=== PATIENT | female | born 1950 | race Two or more races ===

== ENCOUNTER 2017-07-15 23:07 | Emergency (ER) | payer MEDICARE ==
[~2017-07-15] VITALS: Ht 157.5 cm; Wt 78.3 kg
[2017-07-16] MEDS ORDERED: ASPIRIN 81 MG TABLET CHEW PO ONE
[2017-07-16 00:09] LABS: BASOPHILS # (AUTO) 0.01 x10^3/uL (0-0.1); BASOPHILS % (AUTO) 0 % (0-1); EOSINOPHILS # (AUTO) 0.09 x10^3/uL (0-0.4); EOSINOPHILS % (AUTO) 1 % (1-7); LYMPHOCYTES # (AUTO) 2.44 x10^3/uL (1-3.4); LYMPHOCYTES % (AUTO) 32 % (22-44); MD NO; MEAN CORPUSCULAR HEMOGLOBIN 31.7 pg (27.0-34.8); MEAN CORPUSCULAR HGB CONC 33.5 g/dL (32.4-35.8); MEAN CORPUSCULAR VOLUME 94.7 fL (80-100); MEAN PLATELET VOLUME 7.7 fL (7.4-10.4); MONOCYTES # (AUTO) 0.57 x10^3/uL (0.2-0.8); MONOCYTES % (AUTO) 8 % (2-9); NEUTROPHILS # (AUTO) 4.44 x10^3/uL (1.8-6.8); NEUTROPHILS % (AUTO) 59 % (42-75); PLATELET COUNT 287 x10^3/uL (130-400); RED BLOOD COUNT 3.93 x10^6/uL (3.82-5.3); RED CELL DISTRIBUTION WIDTH 14.1 % (9.6-15.2)
[2017-07-16] MEDS ORDERED: ASPIRIN 81 MG TABLET CHEW ONE (00:10)
[2017-07-16 00:22] LABS: ALANINE AMINOTRANSFERASE 22 U/L (12-78); ALBUMIN 3.1 g/dL (3.4-5.0); ANION GAP 8 mmol/L (5-15); CALCIUM 8.3 mg/dL (8.5-10.1); CHLORIDE 107 mmol/L (98-107); CREATININE 0.99 mg/dL (0.55-1.02)
[2017-07-16 00:26] LABS: ALKALINE PHOSPHATASE 87 U/L (45-117); BILIRUBIN,TOTAL 0.3 mg/dL (0.2-1.0); TOTAL PROTEIN 6.2 g/dL (6.4-8.2); TROPONIN I < 0.015 ng/mL (0.000-0.045)
[2017-07-16 01:23] VITALS: BP 150/70
== END 2017-07-16 01:25 | disposition home or self-care (01) ==
LOC: ED 23:59
DX: M54.12 Radiculopathy, cervical region (principal); R07.89 Other chest pain; E78.00 Pure hypercholesterolemia, unspecified; I10 Essential (primary) hypertension; Z86.711 Personal history of pulmonary embolism; Z90.710 Acquired absence of both cervix and uterus
CPT/HCPCS: 36415; 71045; 80053; 84484; 85025; 93005; 99285

== ENCOUNTER → 2017-08-30 | Outpatient (CLI) | payer MEDICARE ==
[2017-08-30 13:08] LABS: CHLORIDE 105 mmol/L (98-107)
[2017-08-30 13:19] LABS: ALANINE AMINOTRANSFERASE 43 U/L (12-78); ALBUMIN 3.6 g/dL (3.4-5.0); ALKALINE PHOSPHATASE 125 U/L (45-117); ANION GAP 12 mmol/L (5-15); BILIRUBIN,TOTAL 0.5 mg/dL (0.2-1.0); CALCIUM 9.2 mg/dL (8.5-10.1); CREATININE 0.89 mg/dL (0.55-1.02); TOTAL PROTEIN 7.3 g/dL (6.4-8.2)
== END | disposition home or self-care (01) ==
LOC: CFH 09:29
PROVIDERS: ATTEND Nurse Practitioner
DX: M85.88 Other specified disorders of bone density and structure, other site (principal); M81.0 Age-related osteoporosis without current pathological fracture; Z78.0 Asymptomatic menopausal state
CPT/HCPCS: 36415; 77080; 80053; 83970

== ENCOUNTER → 2017-09-25 | Outpatient (CLI) | payer MEDICARE | END | disposition home or self-care (01) | LOC: CARD 10:00 | PROVIDERS: ATTEND Internal Medicine Cardiovascular Disease | DX: I10 Essential (primary) hypertension (principal); E78.5 Hyperlipidemia, unspecified; I27.20 Pulmonary hypertension, unspecified | CPT/HCPCS: 93017; 93306; 93350 ==

== ENCOUNTER → 2018-06-28 | Outpatient (CLI) | payer MEDICARE, OTHER ==
[~2018-06-28] MED LIST: AMLO-150 PO; ATOR40TA PO; CELE200C PO; CYAN50008 PO; ERGO500017 PO; LOSA1TAB22 PO; METO-95 PO; OXYB5TAB PO; PHEN-583 PO; POTASSIUM PO; RANI300C PO; SERT25TA3 PO; SUCR1TAB PO; TRAZ-137 PO; VALA500T PO
[2018-06-28 11:03] LABS: ALANINE AMINOTRANSFERASE 20 U/L (12-78); ALBUMIN 3.7 g/dL (3.4-5.0); ANION GAP 9 mmol/L (5-15); CHLORIDE 107 mmol/L (98-107); CREATININE 1.16 mg/dL (0.55-1.02)
[2018-06-28 11:06] LABS: ALKALINE PHOSPHATASE 89 U/L (45-117); BILIRUBIN,TOTAL 0.6 mg/dL (0.2-1.0); TOTAL PROTEIN 7.2 g/dL (6.4-8.2)
== END | disposition home or self-care (01) ==
LOC: STAR 09:38
PROVIDERS: ATTEND Family Medicine
DX: Z01.812 Encounter for preprocedural laboratory examination (principal)
CPT/HCPCS: 36415; 80053; 93005

== ENCOUNTER 2018-07-02 09:19 | Day surgery (SDC) | payer MEDICARE, OTHER ==
[2018-06-28 10:46] VITALS: BP 148/76
[~2018-07-02] VITALS: Ht 157.5 cm; Wt 75.9 kg
[~2018-07-02 09:19] MED LIST changes: -CYAN50008 PO; -POTASSIUM PO
[2018-07-02] MEDS ORDERED: LACTATED RINGERS 1,000 ML IV SCH (09:49)
[2018-07-02] MEDS ORDERED: CYAN50008 PO (09:55)
[2018-07-02] MEDS ORDERED: POTASSIUM PO (09:55)
[2018-07-02 10:00] VITALS: BP 148/76
[2018-07-02] MEDS ORDERED: BALANCED SALT OPHTH IRRIG SOLN 18ML ONE (10:29)
[2018-07-02] MEDS ORDERED: BACITRACIN/POLYMIXIN B SULFATE OINT 14 GM ONE (10:29)
[2018-07-02] MEDS ORDERED: FENTANYL PF 250 MCG/5ML ONE (11:24)
[2018-07-02] MEDS ORDERED: PROPOFOL 50 ML ONE (11:24)
[2018-07-02] MEDS ORDERED: MIDAZOLAM 1 MG/ML, 2ML ONE (11:24)
[2018-07-02] MEDS ORDERED: SUCCINYLCHOLINE 20 MG/ML, 10ML ONE (11:35)
[2018-07-02] MEDS ORDERED: ONDANSETRON 2MG/ML, 2ML ONE (11:35)
[2018-07-02] MEDS ORDERED: CEFAZOLIN 1,000 MG ONE (11:35)
[2018-07-02] MEDS ORDERED: ROCURONIUM 10MG/ML,5ML ONE (11:35)
[2018-07-02] MEDS ORDERED: DEXAMETHASONE 4 MG/ML, 1ML ONE (11:35)
[2018-07-02] MEDS ORDERED: BUPIVACAINE/PF-EPI 0.5% 1:200K ONE (11:52)
[2018-07-02] MEDS ORDERED: OXYcodone 5 MG/5 ML ORAL.SOL UDC PO PRN (12:00)
[2018-07-02] MEDS ORDERED: EPHEDRINE 50 MG/ML, 1ML IVPush PRN (12:00)
[2018-07-02] MEDS ORDERED: PROMETHAZINE 25 MG SUPP PR PRN (12:00)
[2018-07-02] MEDS ORDERED: FENTANYL PF 100 MCG/2ML IV PRN (12:00)
[2018-07-02] MEDS ORDERED: EPHEDRINE 50 MG/ML, 1ML IM PRN (12:00)
[2018-07-02] MEDS ORDERED: MIDAZOLAM 1 MG/ML, 2ML IV PRN (12:00)
[2018-07-02] MEDS ORDERED: PROMETHAZINE 25 MG/ML, 1ML IV PRN (12:00)
[2018-07-02] MEDS ORDERED: MEPERIDINE/PF 25MG/0.5ML IVPush PRN (12:00)
[2018-07-02] MEDS ORDERED: MORPHINE SULFATE 4 MG/ML, 1ML IVPush PRN (12:00)
[2018-07-02] MEDS ORDERED: ACETAMINOPHEN 325 MG TABLET PO PRN (12:00)
[2018-07-02] MEDS ORDERED: PROMETHAZINE 12.5 MG SUPP PR PRN (12:00)
[2018-07-02] MEDS ORDERED: ONDANSETRON 2MG/ML, 2ML IV PRN (12:00)
[2018-07-02] MEDS ORDERED: DIPHENHYDRAMINE 50 MG/ML, 1ML IVPush PRN (12:00)
[2018-07-02] MEDS ORDERED: ONDANSETRON ODT 8 MG PO PRN (12:00)
[2018-07-02] MEDS ORDERED: SUGAMMADEX 200 MG/2 ML IVPush ONE (12:17)
== END 2018-07-02 18:00 | disposition home or self-care (01) ==
LOC: OUT 09:19
PROVIDERS: ATTEND Plastic Surgery
DX: H02.834 Dermatochalasis of left upper eyelid (principal); H02.831 Dermatochalasis of right upper eyelid; H02.403 Unspecified ptosis of bilateral eyelids; Z88.5 Allergy status to narcotic agent; Z88.0 Allergy status to penicillin; Z88.8 Allergy status to other drugs, medicaments and biological substances
CPT/HCPCS: 15823; 67904; J0330; J0690; J1100; J2250; J2405; J2704; J3010; J7120